=== PATIENT | female | born 1955 | race Caucasian/White ===

== ENCOUNTER → 2021-09-02 | Outpatient (CLI) | payer OTHER ==
[~2021-09-02] VITALS: Ht 22.9 cm; Wt 118.4 kg
== END | disposition home or self-care (01) ==
LOC: DTH 12:15
PROVIDERS: ATTEND Surgery
DX: Z71.3 Dietary counseling and surveillance (principal); K21.9 Gastro-esophageal reflux disease without esophagitis; I10 Essential (primary) hypertension; M19.91 Primary osteoarthritis, unspecified site; E66.01 Morbid (severe) obesity due to excess calories; Z68.43 Body mass index [BMI] 50.0-59.9, adult
CPT/HCPCS: 97802

== ENCOUNTER 2021-10-07 05:54 | Day surgery (SDC) | payer OTHER ==
[~2021-10-07] VITALS: Ht 175.3 cm; Wt 118.4 kg
[~2021-10-07 05:54] MED LIST: AMLO-257 PO; CARV6.25 PO; DULO60CA64 PO; LEVO75CA5 PO; PANT40TA PO
[2021-10-07] MEDS ORDERED: 0.9%NACL 1000ML 1,000 ML IV ONE (06:11)
[2021-10-07 06:55] VITALS: BP 121/67
[2021-10-07] MEDS ORDERED: MIDAZOLAM HCL 1 MG/ML 2ML VIAL ONE (08:55)
[2021-10-07] MEDS ORDERED: LIDOCAINE HCL 400MG/20ML VIAL ONE (08:55)
[2021-10-07] MEDS ORDERED: PROPOFOL 10 MG/ML 20ML VIAL IV ONE (08:55)
[2021-10-07] MEDS ORDERED: ATROPINE 1MG SYG IVP ONE (08:56)
[2021-10-07] MEDS ORDERED: SUCCINYLCHOLINE 200MG/10ML SYR ONE (08:56)
[2021-10-07 09:10] VITALS: BP 108/43
[2021-10-07 09:15] VITALS: BP_SYST 104; BP_SYST 99; BP_DIAS 51; BP_DIAS 52
[2021-10-07 09:20] VITALS: BP 110/56
[2021-10-07 09:45] VITALS: BP 119/54
== END 2021-10-07 09:45 | disposition home or self-care (01) ==
LOC: SUH 05:54 → DAH 05:54 → SUH 09:45
PROVIDERS: ATTEND Surgery
DX: K21.9 Gastro-esophageal reflux disease without esophagitis (principal); I10 Essential (primary) hypertension; E66.01 Morbid (severe) obesity due to excess calories; Z98.890 Other specified postprocedural states; Z88.8 Allergy status to other drugs, medicaments and biological substances; Z88.0 Allergy status to penicillin; Z87.891 Personal history of nicotine dependence; Z79.899 Other long term (current) drug therapy; Z82.49 Family history of ischemic heart disease and other diseases of the circulatory system; Z68.38 Body mass index [BMI] 38.0-38.9, adult
CPT/HCPCS: 43235; 71045; 87635; 93005; A4215; A4221; A4222; A4223; A4606; A4663; C9803; J0330; J0461; J2250; J2704; J3490; J7030; 99152

== ENCOUNTER → 2021-10-26 | Outpatient (CLI) | payer OTHER | LOC: DTH 12:48 → EDUNIT# 10-27 13:00 | PROVIDERS: ATTEND Surgery | DX: E66.01 Morbid (severe) obesity due to excess calories (principal); I10 Essential (primary) hypertension; M19.91 Primary osteoarthritis, unspecified site; K21.9 Gastro-esophageal reflux disease without esophagitis; Z71.3 Dietary counseling and surveillance; Z68.43 Body mass index [BMI] 50.0-59.9, adult | CPT/HCPCS: 97803 ==